=== PATIENT | male | born 1960 | race Caucasian/White ===

== ENCOUNTER 2020-12-09 13:56 | Outpatient (REF) | payer OTHER, SELFPAY ==
--- NOTE | ~2020-12-09 | XR_ITS ---
EXAMINATION: CR X-RAY KNEE LEFT 2 VIEW, KNEE STANDING BILATERAL CLINICAL INFORMATION: Right knee pain. COMPARISON: None TECHNIQUE: 2 views of the right knee as well as bilateral standing AP views of the knees were obtained. FINDINGS: Jnee-yt-oqmmzycz tricompartmental degenerative joint changes are again seen, most pronounced in the medial femoral-tibial compartment without significant change. There is no acute fracture or dislocation. A trace suprapatellar joint effusion is seen. The soft tissues are unremarkable. XR/XR knee standing BI IMPRESSION: Tricompartmental degenerative joint changes and trace suprapatellar joint effusion most consistent with osteoarthritis without significant interval change.
--- NOTE | ~2020-12-09 | XR_ITS ---
EXAMINATION: CR X-RAY KNEE LEFT 2 VIEW, KNEE STANDING BILATERAL CLINICAL INFORMATION: Right knee pain. COMPARISON: None TECHNIQUE: 2 views of the right knee as well as bilateral standing AP views of the knees were obtained. FINDINGS: Srdq-po-dctqzzrb tricompartmental degenerative joint changes are again seen, most pronounced in the medial femoral-tibial compartment without significant change. There is no acute fracture or dislocation. A trace suprapatellar joint effusion is seen. The soft tissues are unremarkable. XR/XR knee LT 2V IMPRESSION: Tricompartmental degenerative joint changes and trace suprapatellar joint effusion most consistent with osteoarthritis without significant interval change.
== END 2020-12-09 13:57 | disposition home or self-care (01) ==
LOC: HO.HOSX 13:56
PROVIDERS: Visit Provider Orthopaedic Surgery
DX: M25.561 Pain in right knee (principal); M25.562 Pain in left knee
CPT/HCPCS: 73560; 73565

== ENCOUNTER → 2020-12-10 08:31 | Outpatient (BNVA) | payer SELFPAY | PROVIDERS: PCP Family Medicine; Visit Provider Orthopaedic Surgery | DX: M17.0 Bilateral primary osteoarthritis of knee (principal) | CPT/HCPCS: 20610; J1040 ==

== ENCOUNTER 2020-12-30 18:39 | Outpatient (REF) | payer OTHER, SELFPAY ==
--- NOTE | ~2020-12-30 | MR_ITS ---
EXAMINATION: MR KNEE WITHOUT CONTRAST, LEFT CLINICAL INFORMATION: Pain, swelling. Medial meniscal tear. COMPARISON: None TECHNIQUE: MRI of the knee without contrast was performed using routine sequences on a high-field scanner. FINDINGS: MENISCI: Medial Meniscus: Irregular superior surface tear in the posterior horn, with slightly displaced labral tissue superiorly. Degeneration in the body, with fraying and possible horizontal tear. Lateral Meniscus: Intact. LIGAMENTS: Cruciate: Intact. Collateral: Intact. EXTENSOR MECHANISM: Intact. ARTICULAR CARTILAGE/BONE: Patellofemoral Compartment: Cartilage thinning and fissuring in the lateral patellar facet with subchondral edema. Cartilage thinning in the central trochlea. Medial Compartment: Cartilage thinning and fissuring in the weightbearing compartment, subchondral edema in the tibia. Marginal osteophytes. Lateral Compartment: Cartilage thinning in the weightbearing femur. Marginal osteophytes. No fracture. JOINT FLUID AND BURSAE: Moderate effusion. Mild synovitis, debris/loose bodies. MR/MR knee LT wo con IMPRESSION: 1. Tear of the posterior horn of the medial meniscus. Degenerative fraying of the body, with possible subtle horizontal tear. 2. Mkrw-mf-tvekxidq patellofemoral compartment arthritis. Mild medial and lateral compartment arthritis. 3. Moderate effusion. Mild synovitis/debris/loose bodies.
== END 2020-12-30 18:40 | disposition home or self-care (01) ==
LOC: HO.MRI 18:39
PROVIDERS: Visit Provider Orthopaedic Surgery
DX: S83.242A Other tear of medial meniscus, current injury, left knee, initial encounter (principal)
CPT/HCPCS: 73721

== ENCOUNTER → 2021-01-03 09:04 | Outpatient (BNVA) | payer OTHER, SELFPAY | PROVIDERS: PCP Internal Medicine; Visit Provider Orthopaedic Surgery ==

== ENCOUNTER 2021-01-09 06:51 | Day surgery (SDC) | payer OTHER, SELFPAY ==
--- NOTE | 2021-01-08 10:45 | P.CONAN_ITS ---
Documented by User: Griselda Burrell 01/08/21 10:47 HPI - Anesthesia Eval Consult details Narrative: 60yo M for Left Knee Arthroscopy [facility] Active Problems Active Problems: All Active Problems (Updated 01/03/21 @ 10:01 by Lucas Huang MD) Tear of medial meniscus of left knee, current (Acute) Primary osteoarthritis of knees, bilateral (Acute) Past Medical History Medical History (Updated 01/08/21 @ 10:46 by Griselda Burrell) HTN (hypertension) Social History Social History (Updated 12/10/20 @ 09:00 by Emma Palmer [facility]) Smoking Status: Never smoker Use of substances other than those prescribed or required for medical reasons: No Advance Directives: No Advance Directives Information Provided: Yes Current occupational status: employed 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 Meds Allergies Allergy/AdvReac Type Severity Reaction Status Date / Time No Known Allergies Allergy Verified 12/10/20 08:58 Home Medications Medication Instructions Recorded Confirmed Last Taken Type lisinopril 20 mg tablet 20 mg PO DAILY 12/10/20 Unknown History Exam Exam Date and Time: January 08, 2021 1045 Assessment and Plan Assessment Anesthesia Assessment: Chart Reviewed Documented by User: Alexis Herrera MD 01/09/21 08:20 [facility] Past Medical History Medical History (Updated 01/08/21 @ 10:46 by Griselda Burrell) HTN (hypertension) Social History Social History (Updated 12/10/20 @ 09:00 by Emma Palmer CMA) Smoking Status: Never smoker Use of substances other than those prescribed or required for medical reasons: No Advance Directives: No Advance Directives Information Provided: Yes Current occupational status: employed 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 Meds Allergies Allergy/AdvReac Type Severity Reaction Status Date / Time No Known Allergies Allergy Verified 12/10/20 08:58 Home Medications Medication Instructions Recorded Confirmed Last Taken Type lisinopril 20 mg tablet 20 mg PO DAILY 12/10/20 Unknown History Exam Airway Mallampati Class: II TM Dist: >3cm Neck ROM: Full Loose/Missing/Broken Teeth: No Heart: RRR Lungs: NL Assessment and Plan Assessment Anesthesia Assessment: Anesthesia Plan Discussed and Chart Reviewed Final Anesthetic Review NPO: Yes ASA Class: III Final Preanesthetic Review: No Changes in Pt Med Stat, Meds/Allgs Chart Reviewed, Consent Obtained/Reviewed and Anes Risks/Benef Reviewed Patient Risk: High Procedure Risk: Low Anesthetic Plan Anesthetic Plan: GA Disposition: Standard PACU
[2021-01-09] VITALS (7 sets, daily range): BP systolic 134–160; BP diastolic 69–90; PULSE 66–81; RESP 16–18; TEMP 36.3–36.6; O2SAT 95–96; BMI 39.7
--- NOTE | 2021-01-09 07:21 | MHC.SHP ---
Pre-Procedural Eval Section A The patient is an INPATIENT: No Changes since office visit: No Cold of Flu in the past 2 weeks, No New Medical Problems, No Changes in Medication and No Patient answered all questions The History & Physical has been completed within 30 days and I have reviewed it.: Yes Section B Chief Complaint: Medial Meniscus Tear Allergies: Allergies Allergy/AdvReac Type Severity Reaction Status Date / Time No Known Allergies Allergy Verified 12/10/20 08:58 Plan I have reviewed the history and physical and performed a pertinent physical examination on my patient. No changes have occurred unless specified.
[2021-01-09] MEDS: Lactated Ringers 1,000 ML 100 ML IVCONT (07:37)
--- NOTE | 2021-01-09 09:09 | W.PM.OPN ---
Operative Note Operative Note Date of Service: 01/09/21 Narrative: ARTHROSCOPIC SURGERY NOTE SURGEON: Dr Zavala (Lalitha) Instrum MANAGER STRATEGIC SOURCING: Regla Giraldo PAC PREOP DIAGNOSIS: Osteoarthritis with medial meniscal tear left knee POSTOP DIAGNOSIS: Same OPERATIVE PROCEDURE: 1-arthroscopic partial meniscectomy left knee. Two-debridement left CLINICAL NOTE: This gentleman who had evidence of osteoarthritis that failed operative management. He continued to have a medial-sided pain. Subsequent investigations confirmed a complex tear of the medial meniscus therefore after explaining the risks, benefits, alternatives of the surgery it was mutually agreed upon to carry out the following procedure MOTION: Full range of motion STABILITY: Cruciate and collateral ligaments intact OPERATIVE DETAILS PREPARATION: GA, STANDARD TECHNIQUE, tourniquet E to 300 mm of mercury for 15 minutes SURGICAL TIME-OUT: Patient identified; procedure confirmed; site confirmed. Medical and allergy history reviewed. No preoperative antibiotics. No DVT prophylaxis. All other items discussed and agreed upon. INCISIONS: Superolateral, inferolateral, inferomedial stab incisions SYNOVIUM: Normal SYNOVIAL FLUID: Clear MEDIAL COMPARTMENT: There was complex tearing of the posterior horn of the medial meniscus with a portion of it flipped into the intercondylar notch. This was pulled back into the knee. Following that the meniscus was resected using a combination of handheld cutters and power shaver to stable meniscus. The medial femoral condyle demonstrated a large area of grade 3 and nearly grade 4 injury. This was debrided of loose articular cartilage. Similarly on the tibial side there was mainly grade 3 with small areas posteriorly aGrade 4 injury to the articular surface. This was debrided as well. INTERCONDYLAR NOTCH: ACL visualized palpated and intact. PCL palpated and intact LATERAL COMPARTMENT: The lateral meniscus, femoral and tibial articular surfaces and the popliteus tendon were all stable and intact ANTERIOR COMPARTMENT: Medial and lateral gutters clear there was thickened synovial tissue in the suprapatellar pouch which was debrided. This then revealed that there was grade 5 3-4 injury of the lateral facet with grade 4 injury of the femoral sulcus. This was debrided as well CLOSURE: 30 cc of 0.25% Marcaine with epinephrine injected in the knee. Steri-Strips and sterile dressing then applied. RECOMMENDATIONS: 1)Restore motion strength 2)Resume activities as tolerated 3)Discharge today with prescription for analgesic 4)Follow up in the office in 10-14 days
[2021-01-09] MEDS: oxyCODONE HCl Immed Release 5 MG TABLET PO (09:24)
== END 2021-01-09 10:39 | disposition home or self-care (01) ==
PROVIDERS: Visit Provider Orthopaedic Surgery
PROC: (CPT 29870; principal; 2021-01-09 08:30)
DX: S83.232A Complex tear of medial meniscus, current injury, left knee, initial encounter (principal); M17.0 Bilateral primary osteoarthritis of knee; I10 Essential (primary) hypertension; Z79.899 Other long term (current) drug therapy; X58.XXXA Exposure to other specified factors, initial encounter; Y93.9 Activity, unspecified; Y92.9 Unspecified place or not applicable; Y99.9 Unspecified external cause status
CPT/HCPCS: 29881; J0131; J0171; J1100; J2405; J3010

== ENCOUNTER → 2021-01-21 13:04 | Outpatient (BNVA) | payer OTHER, SELFPAY | PROVIDERS: Visit Provider Physician Assistant ==

== ENCOUNTER → 2021-02-04 08:41 | Outpatient (BNVA) | payer OTHER, SELFPAY | PROVIDERS: Visit Provider Orthopaedic Surgery ==

== ENCOUNTER → 2021-03-04 08:24 | Outpatient (BNVA) | payer OTHER, SELFPAY | PROVIDERS: PCP Internal Medicine; Visit Provider Orthopaedic Surgery ==

== ENCOUNTER → 2021-06-23 08:32 | Outpatient (BNVA) | payer OTHER, SELFPAY | PROVIDERS: PCP Internal Medicine; Visit Provider Orthopaedic Surgery ==

== ENCOUNTER 2022-06-10 08:51 | Outpatient (RCR) | payer OTHER, SELFPAY ==
--- NOTE | 2022-06-10 10:20 | MHC.PT.EP ---
[facility] [place] [facility] [place] Office [place] Office [address] [phone] F: [phone] F: [phone] F: [phone] F: [phone] Physical Therapy Plan of Care Date of Evaluation: Date of Surgery: n/a Diagnosis: arthritis of R knee, prehab for R TKA Assessment: Patient is a 61 year old male presenting to PT for a course of prehab for R knee prior to his TKA scheduled for 07/07/2022. He presents today with impairments in pain, ROM, and strength. 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 Pt expresses ferry terminal supervisor goal of preparing for surgery, and is motivated to work towards this in PT. Clinical presentation today is most consistent with signs and sx associated with R knee arthritis and pt will benefit from skilled PT to address the following problems and impairments noted upon evaluation: pain, ROM, and strength. These problems limit the patient with the following functional activities: work, ADLs, golf, ambulation, stair negotiation. The prescribed treatment plan of care is medically necessary. Co-morbidities of HTN were identified and taken into considerations of plan of care. Pt was educated on HEP, role of PT, prognosis, POC. Frequency and Duration: The patient will be seen x 1 visit Short Term Goals: Pt will demonstrate independence in HEP as evidence by ability to teach back exercises in 1 visit. MET 06/10/2022 Alf Goals: Treatment Plan: Modalities to reduce pain, spasms and effusion. Manual therapy to restore motion and function. Therapeutic exercise to improve strength and flexibility. Neuromuscular re-education for posture and balance. Therapeutic activities to return to functional activities of daily living. Electronically signed by: Scarlet Jane, PT, DPT, ATC Please sign and return to therapist. Thank you for your referral.
--- NOTE | 2022-06-10 13:11 | MHC.PT.DC ---
[facility] [place] Office [place] Office [place] Office [address] [facility] [phone] F: [phone] F: [phone] F: [phone] F: [phone] Physical Therapy Discharge Report Diagnosis: arthritis of R knee, prehab for R TKA Date of Surgery: n/a Date of Evaluation: 06/10/22 Date of Discharge: 06/10/22 Treatments to Date: 1 Cancellations to Date: 0 No Shows to Date: 0 Discharge Status: Discharge Summary: Pt presented to PT for prehab eval prior to R TKA scheduled for 07/07/2022. HEP provided and pt able to teach back each exercise. No further PT appointments scheduled at this time due to pt with very high copay. Electronically signed by: Scarlet Jane, PT, DPT, ATC Please sign and return to therapist. Thank you for your referral.
== END 2022-06-10 13:12 | disposition home or self-care (01) ==
LOC: HO.PTCHIC 08:51
PROVIDERS: PCP Internal Medicine; Visit Provider Orthopaedic Surgery
DX: M17.11 Unilateral primary osteoarthritis, right knee (principal)
CPT/HCPCS: 97110; 97161

== ENCOUNTER 2022-07-06 08:15 | Outpatient (REF) | payer OTHER, SELFPAY ==
--- NOTE | ~2022-07-06 | XR_ITS ---
EXAMINATION: XR AP BILATERAL KNEE STANDING XR RIGHT KNEE CLINICAL INFORMATION: Knee pain. COMPARISON: AP bilateral knee and left knee 12/10/2020. TECHNIQUE: AP bilateral knee standing. Right knee 2 views. FINDINGS: AP Bilateral Knee: There is dmjweqaq-vb-iyfwah loss of medial compartment right knee with periarticular spurring. Moderate loss of medial and lateral compartment joint space left knee and mild loss of lateral compartment joint space right knee is noted. The findings appear similar to previous study 12/10/2020. Right Knee: There is severe loss of patellofemoral compartment joint space with superior patellar spurring. Minimal suprapatellar joint effusion. No loose bodies, acute fracture or lytic process seen. XR/XR knee standing BI IMPRESSION: Degenerative arthritic changes medial and lateral compartment both knees slightly worse in the medial and patellofemoral compartment of right knee. There is periapical spurring in the medial and patellofemoral compartment right knee with minimal suprapatellar joint effusion.
--- NOTE | ~2022-07-06 | XR_ITS ---
EXAMINATION: XR AP BILATERAL KNEE STANDING XR RIGHT KNEE CLINICAL INFORMATION: Knee pain. COMPARISON: AP bilateral knee and left knee 12/10/2020. TECHNIQUE: AP bilateral knee standing. Right knee 2 views. FINDINGS: AP Bilateral Knee: There is mfkvarzv-bp-avkbon loss of medial compartment right knee with periarticular spurring. Moderate loss of medial and lateral compartment joint space left knee and mild loss of lateral compartment joint space right knee is noted. The findings appear similar to previous study 12/10/2020. Right Knee: There is severe loss of patellofemoral compartment joint space with superior patellar spurring. Minimal suprapatellar joint effusion. No loose bodies, acute fracture or lytic process seen. XR/XR knee RT 2V IMPRESSION: Degenerative arthritic changes medial and lateral compartment both knees slightly worse in the medial and patellofemoral compartment of right knee. There is periapical spurring in the medial and patellofemoral compartment right knee with minimal suprapatellar joint effusion.
== END 2022-07-06 08:16 | disposition home or self-care (01) ==
LOC: HO.HOSX 08:15
PROVIDERS: Visit Provider Physician Assistant
DX: M25.561 Pain in right knee (principal); M25.562 Pain in left knee
CPT/HCPCS: 73560; 73565

== ENCOUNTER 2022-07-07 09:53 | Inpatient (IN) | payer OTHER, SELFPAY ==
[2022-07-01 12:00] VITALS: BP 133/78; PULSE 68; RESP 20; O2SAT 96; BMI 41.1
--- NOTE | 2022-07-01 12:14 | HO.ANESPROP2 ---
Documented by User: Griselda Burrell NP 07/01/22 12:25 HPI - Anesthesia Eval Consult details Narrative: 61yo M for Right Knee Replacement Total PCP clear Denies ALIN symptoms Port wine stain L thigh PMFSH Active Problems Active Problems: All Active Problems (Updated 04/10/22 @ 13:23 by Otis Goncalves MD) Primary osteoarthritis of knees, bilateral (Acute) Tear of medial meniscus of left knee, current (Acute) Arthritis of right knee (Acute) Past Medical History Medical History HTN (hypertension) Family History Family history of problems with anesthesia: No Surgical History Surgical History H/O eye surgery H/O foot surgery History of ventral hernia repair Hx of colonoscopy Hx of vasectomy S/P left knee arthroscopy S/P right knee arthroscopy History of Problems with Anesthesia: No Social History Household Members: Significant Other Housing: House Are you a primary regular senior care provider to a significant other at home: No Do you presently have visiting nurse or other home services: No Patient Tobacco Use Status: Never used Tobacco service: No Current occupational status: employed 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 Narrative Narrative: No recent illness No CP/SOB within limits pain Meds Allergies Allergy/AdvReac Type Severity Reaction Status Date / Time No Known Allergies Allergy Verified 07/08/23 08:37 Home Medications Medication Instructions Recorded Confirmed Last Taken Type tadalafil 20 mg tablet 20 mg PO DAILY PRN Sexual Activity 02/04/21 07/08/23 Unknown History lisinopril 20 1 tab PO DAILY 06/30/22 07/08/23 07/06/22 History mg-hydrochlorothiazide 25 mg tablet magnesium 250 mg tablet 250 mg PO DAILY 06/30/22 07/08/23 07/06/22 History multivitamin 1 tab PO DAILY 06/30/22 07/08/23 07/06/22 History Exam Exam Date and Time: July 01, 2022 1214 Height,Weight and Vital Signs: Height 6 ft 5 in Weight 157.397 kg Last Vital Signs Pulse 68 07/01/22 12:00 Resp 20 07/01/22 12:00 BP 133/78 07/01/22 12:00 Pulse Ox 96 07/01/22 12:00 O2 Del Method 07/01/22 12:00 Airway Mallampati Class: II Neck ROM: Full Loose/Missing/Broken Teeth: No (Crowned molars) Heart: RRR Lungs: CTAB Assessment and Plan Assessment Anesthesia Assessment: Anesthesia Plan Discussed and PAT Visit Final Anesthetic Review Family History of Problems with Anesthesia: No History of Problems with Anesthesia: No Documented by User: Chin Martinez MD 08/27/23 00:47 HPI - Anesthesia Eval Consult details Narrative: 61yo M for Right Knee Replacement Total RBBB , Functional status greater than 4 mets PCP clear, Denies ALIN symptoms, back pain Port wine stain L thigh PMFSH Past Medical History Medical History HTN (hypertension) Functional capacity: independent ambulation Surgical History Surgical History H/O eye surgery H/O foot surgery History of ventral hernia repair Hx of colonoscopy Hx of vasectomy S/P left knee arthroscopy S/P right knee arthroscopy Social History Household Members: Significant Other Housing: House Are you a primary regular senior care provider to a significant other at home: No Do you presently have visiting nurse or other home services: No Patient Tobacco Use Status: Never used Tobacco service: No Current occupational status: employed 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 Meds Allergies Allergy/AdvReac Type Severity Reaction Status Date / Time No Known Allergies Allergy Verified 07/08/23 08:37 Home Medications Medication Instructions Recorded Confirmed Last Taken Type tadalafil 20 mg tablet 20 mg PO DAILY PRN Sexual Activity 02/04/21 07/08/23 Unknown History lisinopril 20 1 tab PO DAILY 06/30/22 07/08/23 07/06/22 History mg-hydrochlorothiazide 25 mg tablet magnesium 250 mg tablet 250 mg PO DAILY 06/30/22 07/08/23 07/06/22 History multivitamin 1 tab PO DAILY 06/30/22 07/08/23 07/06/22 History Exam Airway Loose/Missing/Broken Teeth: Yes (Fillings , crowns ) Assessment and Plan Assessment Anesthesia Assessment: Chart Reviewed Final Anesthetic Review NPO: Yes ASA Class: III Final Preanesthetic Review: Meds/Allgs Chart Reviewed, Consent Obtained/Reviewed and Anes Risks/Benef Reviewed Patient Risk: Intermediate Procedure Risk: Intermediate Anesthetic Plan Anesthetic Plan: Spinal, Regional Block and Agree w/ Assess. and Plan Disposition: Standard PACU
[2022-07-01 14:37] LABS: MRSA Nasal PCR NEGATIVE (Negative); SA Nasal PCR NEGATIVE (Negative)
[2022-07-07] VITALS (12 sets, daily range): BP systolic 95–150; BP diastolic 49–99; PULSE 63–85; RESP 15–19; TEMP 36–36.6; O2SAT 93–98
--- NOTE | ~2022-07-07 | XR_ITS ---
EXAMINATION: XR KNEE, RIGHT CLINICAL INFORMATION: Right total knee arthroplasty. COMPARISON: Right knee radiographs dated 07/06/2022. TECHNIQUE: Two views of the right knee. FINDINGS: The patient is status post right knee arthroplasty showing good anatomic alignment and no evidence for hardware malfunction. Mild intra-articular and subcutaneous gas are seen anteriorly. Multilevel skin clips are noted in place. XR/XR knee RT 2V IMPRESSION: Postsurgical changes without hardware abnormality.
--- NOTE | 2022-07-07 10:07 | PHA.MEDREC ---
Pharmacy Consult ? Medication Reconciliation Pharmacy has completed the medication reconciliation. Reviewed med rec done by nursing
[2022-07-07 10:25] LABS: Hematocrit 48.5 % (42.0-52.0); Hemoglobin 16.5 g/dl (14.0-18.0)
[2022-07-07 10:28] LABS: COVID-19 Test Negative (Negative); IDNOW Serial# 08D9AD1C
[2022-07-07] MEDS: Lactated Ringers 1,000 ML 100 ML IVCONT ×3 (10:45→23:54)
--- NOTE | 2022-07-07 12:42 | MHC.SHP ---
Pre-Procedural Eval Section A Date of Service: 07/07/22 The patient is an INPATIENT: No Changes since office visit: Yes Patient answered all questions; No Cold of Flu in the past 2 weeks, No New Medical Problems and No Changes in Medication The History & Physical has been completed within 30 days and I have reviewed it.: Yes Section B Chief Complaint: RT TKA Allergies: Allergies Allergy/AdvReac Type Severity Reaction Status Date / Time No Known Allergies Allergy Verified 07/06/22 09:38 Plan I have reviewed the history and physical and performed a pertinent physical examination on my patient. No changes have occurred unless specified.
--- NOTE | 2022-07-07 14:24 | PM.OP ---
Brief Operative Note Date of Service: 07/07/22 Pre-op diagnosis: Right knee OA Post-op diagnosis: same Procedure: Right TKA Implants: Nancie Triathalon press fir posterior stabilized ps/38a Surgeon: Otis Goncalves MD Anesthesia: regional and spinal Was an Airline Lounge Receptionist used for this Procedure?: Yes Airline Lounge Receptionist: Deepak Arciniega Estimated blood loss (mL): 250 IV fluids (mL): 1,000 Pathology: other Condition: stable Disposition: PACU
[2022-07-07] MEDS: oxyCODONE HCl Immed Release 5 MG TABLET PO (15:47)
[2022-07-07] MEDS: HYDROmorphone HCl 0.5 MG/0.5 ML SYRINGE 0.25 MG IVPUSH (18:21)
[2022-07-07] MEDS: ceFAZolin Sodium 3 GM in 0.9 % Sodium Chloride 100 ML IV (18:29)
[2022-07-07] MEDS: oxyCODONE HCl Immed Release 5 MG TABLET 10 MG PO ×2 (19:50→23:55)
[2022-07-07] MEDS: Celecoxib 200 MG CAPSULE PO (21:03)
[2022-07-07] MEDS: oxyCODONE HCl ER 10 MG TAB.ER.12H PO (21:03)
[2022-07-07] MEDS: Docusate Sodium 100 MG CAPSULE PO (21:03)
[2022-07-08] VITALS (7 sets, daily range): BP systolic 106–166; BP diastolic 57–83; PULSE 76–89; RESP 18; TEMP 36.2–37.1; O2SAT 92–98
[2022-07-08] MEDS: oxyCODONE HCl Immed Release 5 MG TABLET 10 MG PO ×3 (05:15→19:23)
[2022-07-08 06:05] LABS: MANUAL DIFF FLAG NO
[2022-07-08 06:31] LABS: Basophils Percent Auto 0.3 % (0-2); Eosinophils Absolute Auto 0.1 X10*3/uL (0.0-0.4); Eosinophils Percent Auto 0.7 % (0-4); Hematocrit 41.3 % (42.0-52.0); Hemoglobin 13.9 g/dl (14.0-18.0); Imm Gran Abs Auto 0.09 X10*3/uL (0.00-0.03); Imm Gran Pct Auto 0.6 % (0.0-0.4); Lymphocytes Absolute Auto 1.2 X10*3/uL (1.2-4.9); Lymphocytes Percent Auto 8.2 % (20-40); Mean Corpuscular HGB Conc 33.7 g/dl (31.0-36.0); Mean Corpuscular Hemoglobin 27.5 pg (27.0-33.0); Mean Corpuscular Volume 81.6 fL (80.0-98.0); Mean Platelet Volume 9.9 fL (9.4-12.4); Monocytes Absolute Auto 1.5 X10*3/uL (0.1-1.2); Monocytes Percent Auto 9.9 % (2-11); Neutrophils Absolute Auto 11.9 x10*3/uL (2.0-8.3); Neutrophils Percent Auto 80.3 % (45-73); Platelet Count 218 X10*3/uL (160-400); Red Blood Count 5.06 X10*6/uL (4.60-5.80); Red Cell Distribution Width 13.4 % (11.0-16.0); White Blood Count 14.8 X10*3/uL (4.8-10.8)
[2022-07-08 06:44] LABS: Anion Gap 15 (12-20); Blood Urea Nitrogen 17 mg/dL (9-16); Calcium 8.2 mg/dL (8.4-10.2); Carbon Dioxide 25 mmol/L (22-29); Chloride 101 mmol/L (96-108); Creatinine Clr Calc Pharmacy 170.2; Estimated Glomerular Filt Rate > 60; Glucose Fasting 125 mg/dL (60-99); Potassium 4.3 mmol/L (3.3-5.1); Sodium 137 mmol/L (135-145)
--- NOTE | 2022-07-08 07:34 | PM.PNORT ---
Subjective Subjective Date of Service: 07/08/22 Interval history: POD1 s/p RTKA. Patient is resting in bed comfortably. No overnight events. No additional complaints. Physical Exam Vital Signs: Vital Signs: Last Vital Signs Temp 97.1 F 07/08/22 03:28 Pulse 76 07/08/22 03:28 Resp 18 07/08/22 03:28 BP 111/57 L 07/08/22 03:28 Pulse Ox 94 07/08/22 03:28 O2 Del Method 07/08/22 03:28 O2 Flow Rate 4 07/07/22 14:47 BMI result Body Mass Index 41.1 Const: General: cooperative, healthy appearing and no acute distress Resp: Effort & Inspection: normal respiratory effort and able to speak in complete sentences Cardio: Rate: regular rate Peripheral pulses: Peripheral pulses 2+ throughout GI: Palpation (GI): Soft to palpation Skin: Lesions: no lesions Rashes: no rashes Extrem: Other: Right knee Aquacel dressing has some bleeding. New dressing applied. Ashish intact. Able to dorsiflex and plantarflex. NVI. Procedures Date of Service Date of Service: 07/08/22 Progress Note: A&P Assessment and plan (1) Status post total knee replacement, right: Status: Acute Plan Continue pain mgmnt Begin ASA for dvt ppx begin PT for RTKA Dispo planning-Pending PT eval, pain mgmnt Time Spent With Patient Time: Total time spent is greater than 50% in coordination of care (as documented) at patient's floor/unit and/or counseling patient: Quality Stroke Does the patient have a stroke diagnosis?: No VTE Prior VTE?: No VTE Risk Level:: Medical - moderate - high VTE Device Contraindication: N/A - Device Ordered VTE Drug Contraindication: N/A - Med Ordered
--- NOTE | 2022-07-08 07:41 | P.OP_ITS ---
Operative Note Operative Note Date of Service: 07/08/22 Narrative: Brief Operative Note Date of Service: 07/07/22 Pre-op diagnosis: Right knee OA Post-op diagnosis: same Procedure: Right TKA Implants: Nancie Triathalon press fir posterior stabilized ps/38a Surgeon: Otis Goncalves MD Anesthesia: regional and spinal Was an Meat Cutting Teacher used for this Procedure?: Yes Meat Cutting Teacher: Deepak Arciniega Estimated blood loss (mL): 250 IV fluids (mL): 1,000 Pathology: other Condition: stable Disposition: PACU Procedure in detail: The patient was brought to the operating room and prepped and draped in standard sterile fashion. A time-out was called to identify proper site proper procedure proper surgeon and IV antibiotics were administered. 1 g of IV tranexamic acid was administered. I began by making a midline incision to the retinaculum and performed a medial parapatellar arthrotomy. The patella was translated laterally and the knee was flexed up. There was medial compartment eburnation. I performed a small medial peel and resected the infrapatellar fat pad. Madelinei de's line was then used to drill my intramedullary femoral guide and my distal femur cut of 11 mm was made in 5 degrees of valgus while protecting the soft tissues. I then measured a # 7 femur and placed my cutting guide and made my anterior posterior and chamfer cuts protecting the soft tissues at all times. I then made my box but removing the PCL. Once I was satisfied with my cuts I turned my attention to the tibia. I removed the meniscus medially and laterally and , using an external cutting guide, in line with the tibial crest and the third ray, I made my distal tibial cut in 0 deg slope of while protecting the posterior soft tissues at all times. An extension block was used to confirm appropriate amount of bony resection. I then sized a #7 tibia ensuring that there was complete tibial coverage I placed my tibial trial and with the trial femur in place took the knee through range of motion. I was satisfied with the extension and flexion as well as the stability and balance at 0, 30 and 90 degrees. I then turned my attention to the patella where I removed 1 cm from the undersurface of the patella and then trialed a 38a patellar button. Again the knee was taken through range of motion I was satisfied with the tracking. I then returned to the femur and drilled my femoral lug holes and prepared the tibia. A femoral bone plug was placed and the knee was irrigated copiously. I then press fit the patella, tibia and femur in standard fashion. I trialed different inserts until I selected a 9mm insert. The final insert was placed and a 3 minutes iodine soak with local TXA was performed. The knee was then closed with a running Quill suture, a 3 0 Vicryl and bran on the skin. Patient was then placed in sterile dressing and brought to recovery room in stable condition there were no known complications.
[2022-07-08] MEDS: oxyCODONE HCl ER 10 MG TAB.ER.12H PO ×2 (08:10→21:32)
[2022-07-08] MEDS: Celecoxib 200 MG CAPSULE PO ×2 (08:10→21:34)
[2022-07-08] MEDS: Docusate Sodium 100 MG CAPSULE PO ×2 (08:11→21:33)
--- NOTE | 2022-07-08 08:51 | P.CONHOSP_ITS ---
History of Present Illness Data of Consult Service Date: 07/08/22 Primary Care Provider: Fernando Cook MD HPI 61 with HTN for which he takes Lisinoprio/HCTZ, BP presently within normal. He underwent elective right TKR on 07/[address] Goncalves and medical team asked to assess medically. He has no ongoing acute medical issues. Vitals stable, WBC is 14 probably reactive, no fever or chills, no chest pain, no sob. Pain is reasonably controlled. Review of Systems Review of Systems: Gen: no fever Resp: no sob, no cough CV: no chest, no HOPPER, no leg edema GI: No n/v, no abd pain Neuro: No confusion MSK: knee pain from surgery [facility] Medical History (Updated 07/08/22 @ 09:08 by Boo Aiken MD) HTN (hypertension) Functional capacity: independent ambulation Surgical History H/O eye surgery H/O foot surgery History of ventral hernia repair Hx of colonoscopy Hx of vasectomy S/P left knee arthroscopy S/P right knee arthroscopy Social History Household Members: Significant Other Housing: House Are you a primary intensive care unit nurse to a significant other at home: No Do you presently have visiting nurse or other home services: No Patient Tobacco Use Status: Never used Tobacco Use of substances other than those prescribed or required for medical reasons: No Currently Displaying Signs/Symptoms of Drug Intoxication Withdrawal: No Have you been hit, kicked, punched, or otherwise hurt by someone within the past year? If so, by whom?: No Do you feel safe in your current relationship?: Yes Is there a partner from a previous relationship who is making you feel unsafe now?: No Are you made to feel afraid or neglected: No Are you DNR?: No Advance Directives: No Advance Directives Information Provided: Yes Advance Directives on File: No Do you have thoughts of harming others: None Do you have a plan to hurt others: No Plan Recently lost weight without trying: No How much weight loss: 2-13 pounds Eating poorly because of decreased appetite: No Nutrition screen score: 1 Nutrition Risks: Anorexia Poor oral hygiene: No Current occupational status: employed 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 Meds Allergies Allergy/AdvReac Type Severity Reaction Status Date / Time No Known Allergies Allergy Verified 07/06/22 09:38 Active Medications: Current Medications Acetaminophen (Acetaminophen 325 Mg Tablet) 650 mg PO Q6H PRN PRN Reason: Pain, Mild (Pain Scale 1-3) Aspirin (Aspirin 325 Mg Tablet) 325 mg PO BID [facility] Celecoxib (Celecoxib 200 Mg Capsule) 200 mg PO BID [facility] Last Admin: 07/08/22 08:10 Dose: 200 mg Docusate Sodium (Docusate Sodium 100 Mg Capsule) 100 mg PO BID [facility] Last Admin: 07/08/22 08:11 Dose: 100 mg Hydromorphone HCl (Hydromorphone Hcl 0.5 Mg/0.5 Ml Syringe) 0.25 mg IVPUSH Q4H PRN; Protocol PRN Reason: Pain, Severe (Pain Scale 7-10) Last Admin: 07/07/22 18:21 Dose: 0.25 mg Lactated Ringer's (Lr) 1,000 mls @ 100 mls/hr IVCONT .Q10H [facility] Stop: 07/08/22 14:49 Last Admin: 07/07/22 23:54 Dose: 100 mls/hr Ondansetron HCl (Ondansetron Hcl 4 Mg/2 Ml Vial) 4 mg IVPUSH Q8H PRN PRN Reason: Nausea and Vomiting Oxycodone HCl (Oxycodone Hcl Immed Release 5 Mg Tablet) 10 mg PO Q4H PRN PRN Reason: Pain, Moderate (Pain Scale 4-6 Last Admin: 07/08/22 05:15 Dose: 10 mg Oxycodone HCl (Oxycodone Hcl Er 10 Mg Tab.Er.12h) 10 mg PO BID [facility] Last Admin: 07/08/22 08:10 Dose: 10 mg Sodium Chloride (0.9 % Sodium Chloride Flush 3 Ml Syringe) 3 ml IVFLUSH QSHIFT [facility] Last Admin: 07/08/22 08:13 Dose: Not Given Home Medications Medication Instructions Recorded Confirmed Last Taken Type tadalafil 20 mg tablet 20 mg PO DAILY PRN Sexual Activity 02/04/21 07/06/22 Unknown History lisinopril 20 1 tab PO DAILY 06/30/22 07/06/22 07/06/22 History mg-hydrochlorothiazide 25 mg tablet magnesium 250 mg tablet 250 mg PO DAILY 06/30/22 07/06/22 07/06/22 History multivitamin 1 tab PO DAILY 06/30/22 07/06/22 07/06/22 History naproxen sodium 220 mg capsule 220 mg PO DAILY PRN Pain 07/01/22 07/06/22 06/29/22 History (Aleve) Physical Exam Vital Signs and Narrative: Vital Signs: Last Vital Signs Temp 97.9 F 07/08/22 07:32 Pulse 87 07/08/22 08:14 Resp 18 07/08/22 07:32 BP 106/76 07/08/22 08:14 Pulse Ox 93 07/08/22 08:14 O2 Del Method 07/08/22 07:32 O2 Flow Rate 4 07/07/22 14:47 BMI result Body Mass Index 41.1 Const: Other: General: AO X 3, no acute distress Resp: CTA bilateral CVS: S1,S2,RRR GI: +BS, NT, no distention Skin: No rash Neuro: motor grossly intact Psych: appropriate affect Results Labs CBC and Chem 7: 07/08/22 05:20 07/08/22 05:20 Labs: Laboratory Results - last 24 hr 07/07/22 07/08/22 07/08/22 10:00 05:20 05:20 MCV 81.6 MCH 27.5 MCHC 33.7 RDW 13.4 Plt Count 218 MPV 9.9 Immature Gran % (Auto) 0.6 H Neut % (Auto) 80.3 H Lymph % (Auto) 8.2 L [place] % (Auto) 9.9 Eos % (Auto) 0.7 Baso % (Auto) 0.3 Lymph # (Auto) 1.2 [place] # (Auto) 1.5 H Eos # (Auto) 0.1 Baso # (Auto) 0.0 Abs Immat Gran (auto) 0.09 H Absolute Neuts (auto) 11.9 H Absolute Nucleated RBC 0.000 Nucleated RBC % (auto) 0.0 Anion Gap 15 Estim Creat Clear Calc 170.2 Estimated GFR > 60 Fasting Glucose 125 H Calcium 8.2 L COVID-19 ([facility]) Negative COVID-19 Clin Com See Note Imaging Radiologist's Impressions: Impressions Knee X-Ray 07/07/22 15:22 IMPRESSION: Postsurgical changes without hardware abnormality. Assessment and Plan (1) HTN (hypertension): Status: Acute Plan 61/m with HTN who has undergone Right TKR and is now doing well post po with no acute issue plan: Continue present care, given that BP is within normal. Hold HCTZ- Lisinopril but proably ok to resume the next day if BP within normal. Post op care, pain control, DVT prophylaxis per ortho.
[2022-07-08] MEDS: HYDROmorphone HCl 0.5 MG/0.5 ML SYRINGE 0.25 MG IVPUSH (10:03)
--- NOTE | 2022-07-08 13:04 | HO.POSTANES ---
Post Anesthesia Evaluation Post Anesthesia Evaluation Vital Signs: Vital Signs Temp Pulse Resp BP Pulse Ox O2 Del Method 07/08/22 08:14 87 106/76 93 07/08/22 11:34 98.0 F 83 18 111/57 L 93 Room Air 07/08/22 07:32 97.9 F 87 18 106/76 93 Room Air 07/08/22 03:28 97.1 F 76 18 111/57 L 94 Room Air Anesthesia: Spinal and Nerve Block Mental Status: Awake Pain Control: Satisfactory Nausea/Vomiting: None Hydration: Adequate Anesthesia-Related Issues: No Anes. Related Issues
[2022-07-08] MEDS: Aspirin 325 MG TABLET PO ×2 (14:11→21:32)
[2022-07-08] MEDS: 0.9 % Sodium Chloride Flush 3 ML SYRINGE IVFLUSH ×2 (15:45→21:37)
--- NOTE | 2022-07-08 15:57 | MHC.CM.PN ---
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 DCP: HOME W/NEW [facility] FOR HOME PT, [facility] FOR ANTICOAG AND FAMILY FOR TRANSPORT
[2022-07-09] VITALS: BP 111/59; PULSE 82; RESP 18; TEMP 36.5; O2SAT 93
[2022-07-09 04:00] VITALS: BP 120/57; PULSE 79; RESP 18; TEMP 36.4; O2SAT 94
[2022-07-09 06:38] LABS: Basophils Absolute Auto 0.1 X10*3/uL (0.0-0.2); Basophils Percent Auto 0.4 % (0-2); Eosinophils Absolute Auto 0.3 X10*3/uL (0.0-0.4); Eosinophils Percent Auto 2.4 % (0-4); Hematocrit 40.9 % (42.0-52.0); Hemoglobin 13.8 g/dl (14.0-18.0); Imm Gran Abs Auto 0.09 X10*3/uL (0.00-0.03); Imm Gran Pct Auto 0.6 % (0.0-0.4); Lymphocytes Absolute Auto 1.4 X10*3/uL (1.2-4.9); Lymphocytes Percent Auto 10.1 % (20-40); MANUAL DIFF FLAG SCAN; Mean Corpuscular HGB Conc 33.7 g/dl (31.0-36.0); Mean Corpuscular Hemoglobin 27.6 pg (27.0-33.0); Mean Corpuscular Volume 81.8 fL (80.0-98.0); Mean Platelet Volume 10.1 fL (9.4-12.4); Monocytes Absolute Auto 1.6 X10*3/uL (0.1-1.2); Monocytes Percent Auto 11.3 % (2-11); Neutrophils Absolute Auto 10.5 x10*3/uL (2.0-8.3); Neutrophils Percent Auto 75.2 % (45-73); Platelet Count 197 X10*3/uL (160-400); Red Cell Distribution Width 13.5 % (11.0-16.0); SCAN SMEAR FLAG 1; White Blood Count 13.9 X10*3/uL (4.8-10.8)
[2022-07-09 06:56] LABS: Anion Gap 13 (12-20); Blood Urea Nitrogen 15 mg/dL (9-16); Calcium 8.2 mg/dL (8.4-10.2); Carbon Dioxide 27 mmol/L (22-29); Chloride 98 mmol/L (96-108); Creatinine Clr Calc Pharmacy 163.7; Estimated Glomerular Filt Rate > 60; Glucose Fasting 134 mg/dL (60-99); Potassium 4.6 mmol/L (3.3-5.1); Sodium 133 mmol/L (135-145)
[2022-07-09 07:35] LABS: SLIDE REVIEW VERIFIED
[2022-07-09] MEDS: Aspirin 325 MG TABLET PO (07:57)
[2022-07-09 07:59] VITALS: BP 131/63; PULSE 80; RESP 18; TEMP 36.5; O2SAT 95
[2022-07-09] MEDS: 0.9 % Sodium Chloride Flush 3 ML SYRINGE IVFLUSH (07:59)
[2022-07-09] MEDS: Celecoxib 200 MG CAPSULE PO (07:59)
[2022-07-09] MEDS: Docusate Sodium 100 MG CAPSULE PO (07:59)
[2022-07-09] MEDS: oxyCODONE HCl ER 10 MG TAB.ER.12H PO (07:59)
--- NOTE | 2022-07-09 08:12 | MHC.CM.PN ---
[facility] PT WILL D/C TODAY W/[facility] FOR HOME PHYSICAL THERAPY W/FAMILY FOR TRANSPORT
--- NOTE | 2022-07-09 08:36 | P.DS_ITS ---
DS: Providers Provider Date of Service: 07/09/22 Date of admission: 07/07/22 09:53 Primary care physician: Fernando Cook MD Consults: 07/07/22 15:54 Consult to Hospitalist Routine Consulting Provider: Hospitalist Reason For Exam: hypertension DS: Diagnosis Discharge Diagnosis (1) HTN (hypertension): Status: Acute DS: Summary Hospital Course Hospital Course: The patient underwent a successful right total knee arthroplasty, they were transferred to PACU and then to the floor to recover. During their stay, their vitals were stable, afebrile at 97.7. Labs were unremarkable, H/H 130.8/40.9. POD 1 they were started on Aspirin 325mg po bid for DVT ppx, they also received Physical Therapy services twice a day. Prior to discharge, their dressing was changed, incision clean dry and intact, new Aquacel dressing applied and the plan was to be discharged home with VNA services. Time Spent with Patient Time attestation: Total time spent providing and/or coordinating discharge services: Discharge coordination time: Less than 30 minutes Quality: Safe Use of Opioids Does Pt have an Active Cancer Diagnosis on the Problem List?: No Quality: Stroke Does the patient have a stroke diagnosis?: No Physical Exam Vital Signs: Vital Signs: Last Vital Signs Temp 97.7 F 07/09/22 07:59 Pulse 80 07/09/22 07:59 Resp 18 07/09/22 07:59 BP 131/63 07/09/22 07:59 Pulse Ox 95 07/09/22 07:59 O2 Del Method 07/09/22 07:59 O2 Flow Rate 4 07/07/22 14:47 BMI result Body Mass Index 41.1 Const: General: cooperative, healthy appearing and no acute distress Resp: Effort & Inspection: normal respiratory effort and able to speak in complete sentences Cardio: Rate: regular rate Peripheral pulses: Peripheral pulses 2+ throughout GI: Palpation (GI): Soft to palpation Skin: Lesions: no lesions Rashes: no rashes Extrem: Other: Right knee new Aquacel dressing placed. Ashish intact. No erythema or drainage. Patient able to ambulate. Able to dorsiflex and plantarflex. NVI. DS: Data Data Completed and Pending Pending studies at discharge: Pending at discharge 07/07/22 14:00 Surgical [PTH] Routine Labs on day of discharge: Laboratory Results - last 24 hr 07/09/22 07/09/22 05:39 05:39 WBC 13.9 H RBC 5.00 Hgb 13.8 L Hct 40.9 L MCV 81.8 MCH 27.6 MCHC 33.7 RDW 13.5 Plt Count 197 MPV 10.1 Immature Gran % (Auto) 0.6 H Neut % (Auto) 75.2 H Lymph % (Auto) 10.1 L [place] % (Auto) 11.3 H Eos % (Auto) 2.4 Baso % (Auto) 0.4 Lymph # (Auto) 1.4 [place] # (Auto) 1.6 H Eos # (Auto) 0.3 Baso # (Auto) 0.1 Abs Immat Gran (auto) 0.09 H Absolute Neuts (auto) 10.5 H Absolute Nucleated RBC 0.000 Nucleated RBC % (auto) 0.0 Smear Tech's Comments VERIFIED Sodium 133 L Potassium 4.6 Chloride 98 Carbon Dioxide 27 Anion Gap 13 BUN 15 Creatinine 0.79 Estim Creat Clear Calc 163.7 Estimated GFR > 60 Fasting Glucose 134 H Calcium 8.2 L Discharge Plan Discharge Anticipated Discharge Date/Time: 07/09/22 12:00 Patient Disposition: Home Health Service Discharge Diagnosis: s/p RTKA Referrals: JAY MOONEY [Other] - 1 Day (HOME PHYSICAL THERAPY) Deepak Arciniega PA-C [Physician Project Accountant] - 07/23/22 1:45 pm Discharge Medications: New acetaminophen 325 mg Tablet 650 mg PO Q6H PRN (Reason: Pain, Mild (Pain Scale 1-3)) 30 Days Qty: 240 0RF aspirin 325 mg Tablet 325 mg PO BID 42 Days Qty: 84 0RF celecoxib 200 mg Capsule 200 mg PO BID 30 Days Qty: 60 0RF docusate sodium 100 mg Capsule 100 mg PO BID 30 Days Qty: 60 0RF oxycodone 10 mg tablet 10 mg PO Q4H PRN (Reason: Pain, Moderate (Pain Scale 4-6) 7 Days Qty: 42 0RF Rx Instructions: Partial Fill upon patient request. Continued (DME) [employer] See Rx Instructions .MEDSUPPLY Qty: 1 0RF Rx Instructions: Folding Front wheeled walker multivitamin Tablet 1 tab PO DAILY lisinopril-hydrochlorothiazide 20-25 mg tablet 1 tab PO DAILY magnesium 250 mg Tablet 250 mg PO DAILY tadalafil 20 mg tablet 20 mg PO DAILY PRN (Reason: Sexual Activity) Discontinued naproxen sodium [Aleve] 220 mg Capsule 220 mg PO DAILY PRN (Reason: Pain) Discharge Orders: Discharge Order (Routine); Ordered 07/09/22 Ordered By: Regla Giraldo Diet: Regular diet Activity on Discharge: Use cane or walker Stand Alone Forms: Patient Portal Discharge page Care Plan Goals: Restore fxn to rt knee Health Concerns: None Plan of Treatment: Physical Therapy for ROM 0-120, quad strength, gait training. Use walker for ambulation Limit stair climbing, No shower, No tub bath, No driving Continue anticoagulant Keep Aquacel dressing clean, dry and intact. Follow up with orthopedics in 2 weeks Assessment: Stable for discharge
[2022-07-09 08:37] VITALS: BP 131/63; PULSE 80; O2SAT 95
--- NOTE | 2022-07-09 08:38 | P.F2F_ITS ---
Service Date Service Date: 07/09/22 Encounter Date of encounter: 07/09/22 Reasons for Services Signs and symptoms assessed: Pt. is considered homebound due to recent surgery. Unable to drive, poor balance, poor gait mechanics. Reason for physical therapy: home safety and mobility, therapeutic exercises, restore joint function, gait/transfer training and ADL training Homebound: Leaving the home is medically contraindicated at this time without the asist of a device and/or another person due th the listed conditions above and below. Reason homebound: unsteady gait / fall risk, leg weakness, pain with ambulation, pain with transfers, poor balance / fall risk and unable to drive Homebound supporting statement: Pt. is considered homebound due to recent surgery. Unable to drive, poor balance, poor gait mechanics. Certification: Based on the above findings, I certify that this patient is confined to the home and needs intermittent nursing home care, physical therapy and/or speech therapy, or continues to need occupational therapy. The patient is under my care, and I have initiated the establishment of the plan of care. The patient will be followed by a physician who will periodically review the plan of care.
== END 2022-07-09 12:16 | disposition home health service (06) | DRG 326 ==
LOC: HO.SSSA 09:59 → HO.S3 15:49
PROVIDERS: Physician Assistant; Admitting Provider Orthopaedic Surgery; PCP Internal Medicine; Visit Provider Orthopaedic Surgery
PROC: 0SRC0JA Replacement of Right Knee Joint with Synthetic Substitute, Uncemented, Open Approach (ICD-10-PCS; CPT 27447; principal; 2022-07-07 12:50)
DX: M17.11 Unilateral primary osteoarthritis, right knee (principal); E66.01 Morbid (severe) obesity due to excess calories; I10 Essential (primary) hypertension; Z20.822 Contact with and (suspected) exposure to COVID-19; Z68.41 Body mass index [BMI] 40.0-44.9, adult; Z98.52 Vasectomy status; Z79.899 Other long term (current) drug therapy
CPT/HCPCS: 27447; 36415; 73560; 80048; 85014; 85018; 85025; 86850; 86900; 86901; 87635; 87640; 87641; 88305; 88311; 90686; 97110; 97116; 97162; 97530; C1776; J0131; J0690; J1170; J2250; J2795

== ENCOUNTER 2022-10-01 17:03 | Outpatient (REF) | payer OTHER, SELFPAY ==
--- NOTE | ~2022-10-01 | XR_ITS ---
EXAMINATION: XR KNEE AP STANDING, BILATERAL XR KNEE, RIGHT CLINICAL INFORMATION: Pain right knee. COMPARISON: None TECHNIQUE: AP bilateral knee. Right knee 2 views. FINDINGS: AP BILATERAL KNEE: There is a total right knee prosthesis with prosthetic components in satisfactory alignment. No prosthetic loosening seen. No abnormal joint effusion. There is moderate loss of medial and mild loss of lateral compartment joint space. Left knee with periarticular spurring lateral compartment. No bony erosive changes. RIGHT KNEE: Lateral and patellofemoral views reveal total right knee arthroplasty with prosthetic components in satisfactory alignment. No abnormal joint effusion or loose body seen. XR/XR knee RT 2V IMPRESSION: 1. Total right knee arthroplasty in satisfactory alignment. No prosthetic loosening or joint effusion seen. 2. Degenerative arthritic changes medial and lateral compartment left knee with periarticular spurring. No acute fracture or dislocation seen.
--- NOTE | ~2022-10-01 | XR_ITS ---
EXAMINATION: XR KNEE AP STANDING, BILATERAL XR KNEE, RIGHT CLINICAL INFORMATION: Pain right knee. COMPARISON: None TECHNIQUE: AP bilateral knee. Right knee 2 views. FINDINGS: AP BILATERAL KNEE: There is a total right knee prosthesis with prosthetic components in satisfactory alignment. No prosthetic loosening seen. No abnormal joint effusion. There is moderate loss of medial and mild loss of lateral compartment joint space. Left knee with periarticular spurring lateral compartment. No bony erosive changes. RIGHT KNEE: Lateral and patellofemoral views reveal total right knee arthroplasty with prosthetic components in satisfactory alignment. No abnormal joint effusion or loose body seen. XR/XR knee standing BI IMPRESSION: 1. Total right knee arthroplasty in satisfactory alignment. No prosthetic loosening or joint effusion seen. 2. Degenerative arthritic changes medial and lateral compartment left knee with periarticular spurring. No acute fracture or dislocation seen.
== END 2022-10-01 17:04 | disposition home or self-care (01) ==
LOC: HO.HOSX 17:03
PROVIDERS: Visit Provider Orthopaedic Surgery
DX: T84.84XA Pain due to internal orthopedic prosthetic devices, implants and grafts, initial encounter (principal); Z96.651 Presence of right artificial knee joint
CPT/HCPCS: 73560; 73565

== ENCOUNTER 2023-07-08 08:23 | Outpatient (AMB) | payer OTHER, SELFPAY ==
--- NOTE | 2023-07-08 08:35 | MHC.OFFVIS ---
Intake Intake Visit Reasons: OV - Right TKA 07/07/22 Intake Note: Bryn is a 62 year old male who presents today for a follow up appointment s/p Right Total Knee Arthroplasty on 07/07/22. At last appointment he was instructed to continue strengthening and stretching exercises. X rays updated in the office today. Allergies No Known Allergies Allergy (Verified 07/08/23 08:37) Medication List - Last Reconciled 07/08/23 by Airam Rdz, RN acetaminophen 650 mg (2 x 325 mg) PO Q6H PRN 30 days aspirin 325 mg PO BID 42 days celecoxib 200 mg PO BID 30 days docusate sodium 100 mg PO BID 30 days lisinopril-hydrochlorothiazide 20-25 mg 1 tab PO DAILY magnesium 250 mg PO DAILY multivitamin 1 tab PO DAILY oxycodone 10 mg PO Q6H PRN 7 days tadalafil 20 mg PO DAILY PRN walker Folding Front wheeled walker HPI OV - Right TKA 07/07/22 HPI Details Bryn is a 62 year old man who presents ~1 year S/P right TKA. He says he is doing well and has no complaints and is happy with the results of his surgery. 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 Review of Systems Const All systems reviewed & are unremarkable except as noted in HPI and below Physical Exam Const General: no acute distress, alert and awake Orientation/consciousness: patient oriented x3 HEENT Head: Yes normocephalic and Yes atraumatic Eyes EOM: EOMs intact bilaterally Resp Effort & Inspection: normal respiratory effort and able to speak in complete sentences Cardio Jugular venous distension: no JVD Skin General skin exam: turgor normal Rashes: no rashes Neuro General: patient oriented x3 Extrem Other: Right Knee: Well-healed incision 0-125 Stable arc of motion No effusion Goiod quad strength Psych Appearance: grossly normal Affect: normal affect Attitude: cooperative Results Reviewed Results Reviewed: I personally reviewed relevant radiographs. Right total knee arthroplasty in expected post operative position with no hardware complications or evidence of loosening Assessment & Plan Assessment & Plan (1) Status post total knee replacement, right: Code(s): Z96.651 - Presence of right artificial knee joint Plan: This is a 62 year old man S/P right TKA, DOS: 07/07/22. He is doing well, without complaints, and is happy with the results of his surgery. I recommend he continue activity as tolerated. He can follow up prn. Discussed dental prophylaxis. Plan Scribed for Otis Goncalves MD by Mathew Quintero, hospital medical assistant, on 07/08/23 at 9:15 AM, EST. Orders: Orders XR knee standing BI 07/08/23 M25.569 - Pain in unspecified knee XR knee RT 2V 07/08/23 M25.569 - Pain in unspecified knee Coding Level of Care Code Est Pt Level 3 (44837) Diagnoses Status post total knee replacement, right Z96.651
== END 2023-07-08 09:16 | disposition home or self-care (01) ==
PROVIDERS: Visit Provider Orthopaedic Surgery
DX: Z47.1 Aftercare following joint replacement surgery (principal); Z96.651 Presence of right artificial knee joint
CPT/HCPCS: 99213

== ENCOUNTER 2023-07-08 08:23 | Outpatient (REF) | payer OTHER, SELFPAY | END 2023-07-08 08:24 | disposition home or self-care (01) | LOC: HO.HOSX 08:23 | PROVIDERS: Visit Provider Orthopaedic Surgery | DX: Z96.651 Presence of right artificial knee joint (principal) | CPT/HCPCS: 73560; 73565 ==